=== PATIENT | female | born 1955 | race Caucasian/White ===

== ENCOUNTER → 2017-05-28 | Outpatient (CLI) | payer OTHER ==
[~2017-05-28] MED LIST: CRESTOR5 MG PO; HYDROCHLOROTHIA25 M1 PO; KEPPRA250 MG PO; KLOR-CON 1010 MEQ PO; NEURONTIN600 MG PO; PERCOCET 7.5-31 EACH PO
--- NOTE | ~2017-05-28 | S ---
[facility] [address] [place] [address] SURGICAL PATH RPT PROCEDURE Name: ABRAHAM NASCIMENTO Room #: REG DAYO OdomR.#: [id number] Admission: 05/28/17 Date of : 57 Discharge: Report #: [id number] Path Case #: [id number] PATHOLOGY REPORT DRAFT COLLECTION DATE: 05/28/2017 RECEIVED DATE: 05/28/2017 SPECIMEN(S) RECEIVED: A.Left breast
--- NOTE | ~2017-05-28 | S ---
[facility] [place] [address] [place] [address] SURGICAL PATH RPT PROCEDURE Name: ABRAHAM NASCIMENTO Room #: REG DAYO M.Augustina.#: [id number] Admission: 05/28/17 Date of : 57 Discharge: Report #: [id number] Path Case #: [id number] PATHOLOGY REPORT COLLECTION DATE: 05/28/2017 RECEIVED DATE: 05/28/2017 SUBMITTING PHYS: Dr. Amos Valentin OTHER PHYS: Dr. Raul Khan SPECIMEN(S) RECEIVED: A.Left upper outer breast * * * * * * * * * * * * FINAL DIAGNOSIS: "Left upper outer breast", needle biopsy: - Benign breast with fibrocystic changes including stromal fibrosis, cyst formation, adenosis and columnar change with coarse microcalcifications present; no cytologic atypia or malignancy seen. (CLW:rebekah; 05/29/2017) COMMENT: Manager [facility] slides are co-reviewed with Dr. Latoya Vidal. Clinical and radiographic correlation is recommended. (CLW:rebekah; 05/29/2017) PATHOLOGIST: Tawnya Stewart M.D. REPORT ELECTRONICALLY SIGNED BY: Tawnya Stewart M.D. DATE/TIME: 05/31/2017 21:43 * * * * * * * * * * * * GROSS PATHOLOGY: Received in formalin labeled "Abraham Nascimento, left breast," are multiple needle cores of yellow-luke fibrofatty tissue measuring 3.1 x 3.4 x 0.4 cm in aggregate dimensions. Also received is a plastic cassette containing multiple cores of yellow-luke fibrofatty tissue measuring 2.3 x 1.2 x 0.4 cm in aggregate dimensions. The tissue in the cassette is transferred to cassette A3, and the remaining tissue is submitted in its entirety in cassette A1 and A2. The cold ischemic time is 10 minutes. The total formalin fixation time is 11 hours and 10 minutes. (TSD; 05/28/2017) CLINICAL HISTORY: [facility] [address] [place] [address] SURGICAL PATH RPT PROCEDURE Name: PATI NASCIMENTORED Room #: REG [facility].#: [id number] Admission: 05/28/17 Date of : 57 Discharge: Report #: [id number] Path Case #: [id number] INITIAL CPT CODE(S): A; 46731 Professional services performed by [facility] at [address] , [place] [address] Technical services performed by [facility] at [address] [place] [address], [facility] [address], [place] [address]. [facility] [place] [address] PHONE: [phone] DIRECTOR: Joe Toney M.D. * * * END OF REPORT * * *
== END | disposition home or self-care (01) ==
LOC: RAD 11:42
DX: N60.12 Diffuse cystic mastopathy of left breast (principal); M17.0 Bilateral primary osteoarthritis of knee; Z88.2 Allergy status to sulfonamides

== ENCOUNTER 2017-11-21 01:32 | Emergency (ER) | payer OTHER ==
[~2017-11-21] VITALS: Ht 167.6 cm; Wt 81.7 kg
[2017-11-21] MEDS ORDERED: KEPPRA250 MG PO (01:37)
[2017-11-21] MEDS ORDERED: NEURONTIN600 MG PO (01:38)
[2017-11-21] MEDS ORDERED: CRESTOR5 MG PO (01:38)
[2017-11-21] MEDS ORDERED: KLOR-CON 1010 MEQ PO (01:38)
[2017-11-21] MEDS ORDERED: HYDROCHLOROTHIA25 M1 PO (01:39)
[2017-11-21] MEDS ORDERED: PERCOCET 7.5-31 EACH PO (01:40)
[2017-11-21 05:42] VITALS: BP 141/66
== END 2017-11-21 05:43 | disposition home or self-care (01) ==
LOC: ER 01:32
DX: S41.112A Laceration without foreign body of left upper arm, initial encounter (principal); S60.812A Abrasion of left wrist, initial encounter; S80.811A Abrasion, right lower leg, initial encounter; F17.210 Nicotine dependence, cigarettes, uncomplicated; I63.9 Cerebral infarction, unspecified; Z88.2 Allergy status to sulfonamides; Z90.710 Acquired absence of both cervix and uterus; G89.29 Other chronic pain; M54.9 Dorsalgia, unspecified; M25.519 Pain in unspecified shoulder; W18.39XA Other fall on same level, initial encounter; Y92.89 Other specified places as the place of occurrence of the external cause; Y93.89 Activity, other specified; Y99.8 Other external cause status

== ENCOUNTER 2018-03-18 20:26 | Inpatient (IN) | payer OTHER ==
[~2018-03-18] VITALS: Ht 167.6 cm; Wt 84.8 kg
--- NOTE | ~2018-03-18 | EKG ---
[address] [address] ELECTROCARDIOGRAM REPORT Name: ABRAHAM NASCIMENTO Room #: 456-P ADM IN M.R.#: [id number] Admission: 03/18/18 Attend Phys: Jose Angel MD Discharge: Date of : 57 Report #: [id number] THIS REPORT FOR: //name// [facility] ED Test Date: 2018-03-18 Test Time: 21:20:06 Pat Name: ABRAHAM NASCIMENTO Department: Room: [facility] Gender: F Faith Doctor: MARA : 1955 Requested By: Brynn Price Order Number: [id number] MD: Javier Pires Measurements Intervals [place] Rate: 64 P: 62 HI: 147 QRS: 63 QRSD: 137 T: 56 QT: 423 QTc: 437 Interpretive Statements Sinus rhythm Right ventricular conduction delay No previous ECG available for comparison Electronically Signed On 03-19-2018 8:05:12 [employer]ACHUTE [employer] INST[employer] by Javier Pires [email or web address] <ELECTRONICALLY SIGNED> By: Javier Pires MD, [facility] 03/19/18 0805 19 19 Javier Pires MD, FAC /EPI
--- NOTE | ~2018-03-18 | PATH ---
[facility] [address] [place] [address] PATHOLOGY RPT PROCEDURE Name: ABRAHAM NASCIMENTO Room #: 456-P ADM IN M.R.#: [id number] Admission: 03/18/18 Date of : 57 Discharge: Report #: [id number] Path Case #: [id number] [facility] Accession Number: [id number] . 01 Material submitted: . RANDOM BX OF SIGMOID R/O INFECTIOUS/ISCHEMIC COLITIS . 01 Clinician provided ICD-10: R10.9 R93.5 . 01 Clinical history: . Pre-OP DX: Left abdominal pain, abd CT scan Post-OP DX: Jose C's Rule out infectious/ischemic colitis . 02 Diagnosis: Large intestinal mucosa, sigmoid rule out infectious/ischemic colitis, endoscopic biopsy: - Reactive hyperplastic changes. - Negative for active colitis. - Negative for ischemic changes. - Negative for microscopic colitis. - Negative for dysplasia or malignancy. . (IUV:at;03/22/2018) QTA/03/22/2018 . 02 Comment: Sections of colon biopsy tissues show crypts at regular intervals and no increase in cellularity of lamina propria. There are no granulomas. The collagen layer underneath the epithelium is not thickened. There is no distortion in crypt architecture as well. There is no evidence of dysplasia. (IUV:at;03/22/2018) . 02 Electronically signed: . Latoya Vidal MD, Pathologist NPI- [id number] . 01 Gross description: . Received in formalin labeled "Abraham Nascimento, random BX of sigmoid," are 5 segments of lucas soft tissue measuring 1.2 x 0.6 x 0.2 cm in aggregate dimensions and ranging from 0.3 to 0.6 cm in maximum dimension. The specimen is submitted entirely in cassette A1. (TSD; 03/19/2018) TOB/[place] [address] PATHOLOGY RPT PROCEDURE Name: ABRAHAM NASCIMENTO Room #: 456-P [facility] IN M.R.#: [id number] Admission: 03/18/18 Date of : 57 Discharge: Report #: [id number] Path Case #: [id number] . 02 Pathologist provided ICD-10: R10.9, R93.5 . 02 CPT . 593178 Specimen Comment: A courtesy copy of this report has been sent to Specimen Comment: [phone], . Specimen Comment: Report sent to / DR GUTIERREZ Performed at: [address] [facility] [address], [place], [place] [id number] MD Chandler Iqbal MD Phone: [phone] Performed at: [address] [facility] [id number] MD Latoya Vidal MD Phone: [phone]
[2018-03-18 20:28] VITALS: BP 166/87
[2018-03-18] MEDS ORDERED: ZANAFLEX2 MG PO (20:53)
[2018-03-18] MEDS ORDERED: XANAX 0.25 MG0.25 MG PO (20:53)
[2018-03-18 21:41] LABS: ABSOLUTE NEUTROPHILS 9.9 thou/uL (1.4-8.2); BASOPHILS 0.3 % (0.0-2.0); EOSINOPHILS 0.2 % (0.0-3.0); HEMATOCRIT 43.9 % (37.0-47.0); HEMOGLOBIN 15.3 gm/dL (12.0-15.0); LYMPHOCYTES 8.1 % (24.0-44.0); MCH 33.4 pg (26.0-34.0); MCV 95.5 fL (80.0-100.0); PLATELET COUNT 232 thou/uL (150-400); POLYS 83.4 % (36.0-66.0); RBC 4.59 mil/uL (4.20-5.00); RDW 13.7 % (10.5-14.5); WBC 11.9 thou/uL (4.0-11.0)
[2018-03-18 21:50] LABS: ANION GAP 11 mmol/L (7-16); BUN 13 mg/dL (7-18); CALCIUM 10.2 mg/dL (8.5-10.1); CHLORIDE 101 mmol/L (98-107); CO2 29 mmol/L (21-32); GLUCOSE 144 mg/dL (74-106); POTASSIUM 3.2 mmol/L (3.5-5.1); SODIUM 141 mmol/L (136-145)
[2018-03-18 22:00] LABS: ALBUMIN 3.6 g/dL (3.4-5.0); LIPASE 96 U/L (73-393); SGOT 21 U/L (15-37); SGPT 21 U/L (30-65); TOTAL BILIRUBIN 0.6 mg/dL (<0.1-1.0); TOTAL PROTEIN 8.6 g/dL (6.4-8.2); TROPONIN-I <0.06 ng/mL (<0.06)
[2018-03-18 22:34] LABS: URINE BILIRUBIN NEGATIVE (Negative); URINE BLOOD TRACE (Negative); URINE CLARITY CLEAR; URINE COLOR YELLOW; URINE GLUCOSE-RANDOM* NEGATIVE (Negative); URINE KETONES NEGATIVE (Negative); URINE LEUKOCYTES NEGATIVE (Negative); URINE NITRITE NEGATIVE (Negative); URINE PROTEIN (DIPSTICK) NEGATIVE (Negative); URINE SPECIFIC GRAVITY >= 1.030 (1.005-1.035)
[2018-03-19] VITALS (7 sets, daily range): BP systolic 141–176; BP diastolic 63–100
[2018-03-19 06:23] LABS: HEMOGLOBIN 13.7 gm/dL (12.0-15.0); MCH 33.2 pg (26.0-34.0); MCHC 34.3 g/dL (28.0-37.0); MCV 96.6 fL (80.0-100.0); RBC 4.14 mil/uL (4.20-5.00); RDW 13.8 % (10.5-14.5); WBC 11.1 thou/uL (4.0-11.0)
[2018-03-19 06:39] LABS: CREATININE 0.9 mg/dL (0.6-1.0); MAGNESIUM 1.9 mg/dL (1.8-2.4); POTASSIUM 3.2 mmol/L (3.5-5.1)
[2018-03-20 05:32] VITALS: BP 175/83
[2018-03-20 05:43] LABS: HEMATOCRIT 37.4 % (37.0-47.0); MCH 33.6 pg (26.0-34.0); MCHC 34.6 g/dL (28.0-37.0); MCV 96.9 fL (80.0-100.0); RBC 3.86 mil/uL (4.20-5.00); RDW 13.6 % (10.5-14.5)
[2018-03-20 05:57] LABS: CALCIUM 8.6 mg/dL (8.5-10.1); CREATININE 0.9 mg/dL (0.6-1.0); POTASSIUM 3.2 mmol/L (3.5-5.1)
[2018-03-20 14:30] VITALS: BP 90/54
[2018-03-21 03:11] VITALS: BP 161/77
[2018-03-21 04:35] LABS: HEMATOCRIT 34.1 % (37.0-47.0); HEMOGLOBIN 11.8 gm/dL (12.0-15.0); MCH 33.7 pg (26.0-34.0); MCHC 34.7 g/dL (28.0-37.0); RBC 3.52 mil/uL (4.20-5.00); RDW 13.7 % (10.5-14.5); WBC 8.9 thou/uL (4.0-11.0)
[2018-03-21 04:44] LABS: CALCIUM 8.1 mg/dL (8.5-10.1); CREATININE 1.1 mg/dL (0.6-1.0); POTASSIUM 3.8 mmol/L (3.5-5.1)
[2018-03-21 10:02] VITALS: BP 151/69
[2018-03-21 14:32] VITALS: BP 158/78
[2018-03-21 19:50] VITALS: BP 180/94
[2018-03-22 04:44] VITALS: BP 184/97
[2018-03-22 05:58] LABS: HEMATOCRIT 36.5 % (37.0-47.0); HEMOGLOBIN 12.5 gm/dL (12.0-15.0); MCHC 34.2 g/dL (28.0-37.0); MCV 96.6 fL (80.0-100.0); RBC 3.78 mil/uL (4.20-5.00); RDW 13.3 % (10.5-14.5); WBC 9.1 thou/uL (4.0-11.0)
[2018-03-22 06:08] LABS: CALCIUM 8.3 mg/dL (8.5-10.1); CREATININE 0.7 mg/dL (0.6-1.0); POTASSIUM 3.4 mmol/L (3.5-5.1)
[2018-03-22 07:18] VITALS: BP 163/64
[2018-03-22] MEDS ORDERED: PERCOCET 10-321 EACH PO (13:33)
[2018-03-22] MEDS ORDERED: COLACE 100 MG100 MG PO (13:34)
[2018-03-22] MEDS ORDERED: MIRALAX17 GM PO (13:35)
[2018-03-22 13:48] VITALS: BP 163/64
[2018-03-22 15:03] VITALS: BP 163/64
== END 2018-03-22 16:53 | disposition home or self-care (01) | DRG 371 ==
LOC: ER 20:26 → EROBS 23:44 → 4W 23:44 → ENTRNSPT 03-22 16:15 → 4W 03-22 16:53
PROVIDERS: Hospitalist; Nurse Practitioner Family; Physician Assistant
PROC: 0DBN8ZX Excision of Sigmoid Colon, Via Natural or Artificial Opening Endoscopic, Diagnostic (ICD-10-PCS; principal; 2018-03-19)
DX: A04.9 Bacterial intestinal infection, unspecified (principal); E43 Unspecified severe protein-calorie malnutrition; E86.0 Dehydration; M19.90 Unspecified osteoarthritis, unspecified site; R56.9 Unspecified convulsions; E78.5 Hyperlipidemia, unspecified; F41.9 Anxiety disorder, unspecified; F17.210 Nicotine dependence, cigarettes, uncomplicated; N63.0 Unspecified lump in unspecified breast; K59.03 Drug induced constipation; T40.605A Adverse effect of unspecified narcotics, initial encounter; Y92.89 Other specified places as the place of occurrence of the external cause; Z86.010 Personal history of colon polyps; Z86.73 Personal history of transient ischemic attack (TIA), and cerebral infarction without residual deficits; Z90.710 Acquired absence of both cervix and uterus; Z79.899 Other long term (current) drug therapy; Z28.21 Immunization not carried out because of patient refusal; Z80.0 Family history of malignant neoplasm of digestive organs
CPT/HCPCS: 10040; 62110; 62900; 70005

== ENCOUNTER 2019-06-16 13:28 | Emergency (ER) | payer OTHER ==
[~2019-06-16] VITALS: Ht 170.2 cm; Wt 65.8 kg
[~2019-06-16 13:28] MED LIST changes: +COLACE 100 MG100 MG PO; +MIRALAX17 GM PO; +PERCOCET 10-321 EACH PO; +XANAX 0.25 MG0.25 MG PO; +ZANAFLEX2 MG PO
[2019-06-16 15:32] LABS: ABSOLUTE NEUTROPHILS 8.4 thou/uL (1.4-8.2); BASOPHILS 0.2 % (0.0-2.0); EOSINOPHILS 0.1 % (0.0-3.0); HEMATOCRIT 49.4 % (37.0-47.0); HEMOGLOBIN 16.9 gm/dL (12.0-15.0); LYMPHOCYTES 8.3 % (24.0-44.0); MCH 32.7 pg (26.0-34.0); MCHC 34.2 g/dL (28.0-37.0); MCV 95.6 fL (80.0-100.0); MONOCYTES 2.4 % (1.0-8.0); PLATELET COUNT 230 thou/uL (150-400); RBC 5.17 mil/uL (4.20-5.00); RDW 13.6 % (10.5-14.5); WBC 9.4 thou/uL (4.0-11.0)
[2019-06-16 15:50] LABS: CALCIUM 9.4 mg/dL (8.5-10.1); POTASSIUM 3.8 mmol/L (3.5-5.1)
[2019-06-16 15:54] LABS: ALBUMIN 4.2 g/dL (3.4-5.0); TOTAL BILIRUBIN 0.5 mg/dL (<0.1-1.0); TOTAL PROTEIN 8.7 g/dL (6.4-8.2)
[2019-06-16] MEDS ORDERED: IMODIUM A-D2 MG PO (17:38)
[2019-06-16] MEDS ORDERED: PHENERGAN 25 MG25 MG PO (17:38)
[2019-06-16] MEDS ORDERED: ZOFRAN ODT4 MG PO (17:38)
[2019-06-16 17:55] VITALS: BP 176/86
== END 2019-06-17 00:20 | disposition home or self-care (01) ==
LOC: ER 13:28
PROVIDERS: Emergency Medicine
DX: K52.9 Noninfective gastroenteritis and colitis, unspecified (principal); R11.2 Nausea with vomiting, unspecified; F17.210 Nicotine dependence, cigarettes, uncomplicated; Z86.73 Personal history of transient ischemic attack (TIA), and cerebral infarction without residual deficits; Z90.710 Acquired absence of both cervix and uterus; Z88.2 Allergy status to sulfonamides

== ENCOUNTER → 2019-10-18 | Outpatient (CLI) | payer OTHER ==
[~2019-10-18] MED LIST changes: +IMODIUM A-D2 MG PO; +PHENERGAN 25 MG25 MG PO; +ZOFRAN ODT4 MG PO
== END ==
LOC: RAD 07:36
PROVIDERS: ATTEND Internal Medicine
DX: K44.9 Diaphragmatic hernia without obstruction or gangrene (principal); Z98.1 Arthrodesis status; Z80.0 Family history of malignant neoplasm of digestive organs

== ENCOUNTER → 2020-09-26 | Outpatient (CLI) | payer OTHER | LOC: BC 13:33 | PROVIDERS: ATTEND Internal Medicine | DX: N63.42 Unspecified lump in left breast, subareolar (principal); N63.0 Unspecified lump in unspecified breast ==

== ENCOUNTER 2021-02-13 17:32 | Emergency (ER) | payer OTHER ==
[~2021-02-13] VITALS: Ht 170.2 cm; Wt 81.7 kg
[2021-02-13 20:17] LABS: URINE BILIRUBIN 1+ (Negative); URINE BLOOD 2+ (Negative); URINE CLARITY CLEAR; URINE COLOR YELLOW; URINE GLUCOSE-RANDOM* NEGATIVE (Negative); URINE KETONES TRACE (Negative); URINE LEUKOCYTES-REFLEX NEGATIVE (Negative); URINE NITRITE-REFLEX NEGATIVE (Negative); URINE PROTEIN (DIPSTICK) TRACE (Negative)
[2021-02-13 20:51] LABS: ABSOLUTE NEUTROPHILS 5.3 thou/uL (1.4-8.2); BASOPHILS 0.5 % (0.0-2.0); EOSINOPHILS 0.2 % (0.0-3.0); HEMATOCRIT 44.4 % (37.0-47.0); HEMOGLOBIN 15.2 gm/dL (12.0-15.0); LYMPHOCYTES 24.1 % (24.0-44.0); MCH 33.9 pg (26.0-34.0); MCHC 34.3 g/dL (28.0-37.0); MONOCYTES 7.4 % (1.0-8.0); PLATELET COUNT 201 thou/uL (150-400); POLYS 67.8 % (36.0-66.0); RBC 4.49 mil/uL (4.20-5.00); RDW 14.6 % (10.5-14.5); WBC 7.8 thou/uL (4.0-11.0)
[2021-02-13 20:54] LABS: ICTOTEST (BILI CONFIRMATORY) Negative (Negative)
[2021-02-13 20:58] LABS: CALCIUM 8.9 mg/dL (8.5-10.1); CREATININE 1.1 mg/dL (0.6-1.0); POTASSIUM 3.8 mmol/L (3.5-5.1)
[2021-02-13 21:03] LABS: BACTERIA-REFLEX 1-9 Few /HPF (None Seen); CASTS None Seen /LPF (None Seen); CRYSTALS None Seen /LPF (None Seen); SQUAMOUS 4-10 Moderate /LPF (0-3); URINE RBC 3-10 Few /HPF (NONE SEEN); URINE WBC-REFLEX 0-5 Rare /HPF (0-5)
[2021-02-13 21:05] LABS: ALBUMIN 3.5 g/dL (3.4-5.0); TOTAL BILIRUBIN 0.8 mg/dL (0.2-1.0); TOTAL PROTEIN 7.1 g/dL (6.4-8.2)
[2021-02-13] MEDS ORDERED: BENTYL 10 MG CA10 M1 PO (22:26)
[2021-02-13] MEDS ORDERED: ZOFRAN ODT4 MG PO (22:26)
[2021-02-13 23:04] VITALS: BP 135/81
== END 2021-02-13 23:06 | disposition home or self-care (01) ==
LOC: ER 17:32
PROVIDERS: Nurse Practitioner Family
DX: K52.9 Noninfective gastroenteritis and colitis, unspecified (principal); K85.90 Acute pancreatitis without necrosis or infection, unspecified; F17.210 Nicotine dependence, cigarettes, uncomplicated; Z98.890 Other specified postprocedural states; Z90.710 Acquired absence of both cervix and uterus; Z79.891 Long term (current) use of opiate analgesic; Z79.899 Other long term (current) drug therapy; Z79.1 Long term (current) use of non-steroidal anti-inflammatories (NSAID); Z88.2 Allergy status to sulfonamides

== ENCOUNTER 2021-02-14 12:42 | Inpatient (IN) | payer OTHER ==
[~2021-02-14] VITALS: Ht 170.2 cm; Wt 92.0 kg
[~2021-02-14 12:42] MED LIST changes: +BENTYL 10 MG CA10 M1 PO
[2021-02-14 12:45] VITALS: BP 83/53
[2021-02-14 13:30] LABS: ABSOLUTE NEUTROPHILS 9.1 thou/uL (1.4-8.2); BASOPHILS 0.4 % (0.0-2.0); EOSINOPHILS 0.1 % (0.0-3.0); HEMATOCRIT 47.2 % (37.0-47.0); HEMOGLOBIN 16.1 gm/dL (12.0-15.0); MCH 33.7 pg (26.0-34.0); MCHC 34.1 g/dL (28.0-37.0); MCV 98.6 fL (80.0-100.0); MONOCYTES 7.3 % (1.0-8.0); POLYS 79.2 % (36.0-66.0); RBC 4.79 mil/uL (4.20-5.00); RDW 14.8 % (10.5-14.5); WBC 11.4 thou/uL (4.0-11.0)
[2021-02-14 13:39] LABS: CALCIUM 8.9 mg/dL (8.5-10.1); CREATININE 1.3 mg/dL (0.6-1.0)
[2021-02-14 13:43] LABS: POTASSIUM 3.5 mmol/L (3.5-5.1)
[2021-02-14 13:50] LABS: ALBUMIN 3.8 g/dL (3.4-5.0); TOTAL PROTEIN 7.6 g/dL (6.4-8.2)
[2021-02-14 14:10] LABS: PLATELET COUNT 218 thou/uL (150-400)
--- NOTE | 2021-02-14 15:36 | EKG ---
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: eileen : 1955 Requested By: Chin Boss Order Number: [id number] MD: Amos Grimm Measurements Intervals [place] Rate: 60 P: 56 [place]: 139 QRS: 63 QRSD: 139 T: 54 QT: 472 QTc: 472 Interpretive Statements Sinus rhythm Atrial premature complexes in couplets Right bundle branch block Compared to ECG 03/18/2018 21:20:06 Atrial premature complex(es) now present Right bundle-branch block now present Electronically Signed On 02-14-2021 15:36:32 CDT by Amos Grimm [email or web address] <ELECTRONICALLY SIGNED> By: Amos Grimm MD, [facility] 02/14/21 1536 29 Amos Grimm MD, FACC /EPI
[2021-02-14 16:30] LABS: URINE BLOOD 2+ (Negative); URINE CLARITY CLEAR; URINE COLOR YELLOW; URINE GLUCOSE-RANDOM* NEGATIVE (Negative); URINE KETONES 1+ (Negative); URINE LEUKOCYTES-REFLEX NEGATIVE (Negative); URINE NITRITE-REFLEX NEGATIVE (Negative); URINE PROTEIN (DIPSTICK) NEGATIVE (Negative)
[2021-02-14 16:33] LABS: ICTOTEST (BILI CONFIRMATORY) Negative (Negative); URINE BILIRUBIN NEGATIVE (Negative)
[2021-02-14 16:42] LABS: BACTERIA-REFLEX 1-9 Few /HPF (None Seen); SQUAMOUS 4-10 Moderate /LPF (0-3); URINE RBC 3-10 Few /HPF (NONE SEEN); URINE WBC-REFLEX 0-5 Rare /HPF (0-5)
[2021-02-14 22:29] VITALS: BP 167/87
[2021-02-14 23:00] VITALS: BP 155/86
--- NOTE | 2021-02-15 04:24 | NUR ---
Pt is an ER admit who presented with abdominal pain, paracentesis and NSTEMI. N/V present also. Admission assessment and documentation completed. Pain verbalized. Pain medication administered upon request. Patient continues to verbalize pain. Nausea stable. No acute even through the night. Continue to monitor. No further needs at this time
[2021-02-15 05:50] VITALS: BP 151/79
[2021-02-15 05:54] LABS: ABSOLUTE NEUTROPHILS 5.2 thou/uL (1.4-8.2); BASOPHILS 0.2 % (0.0-2.0); EOSINOPHILS 0.2 % (0.0-3.0); HEMATOCRIT 41.5 % (37.0-47.0); HEMOGLOBIN 14.4 gm/dL (12.0-15.0); LYMPHOCYTES 17.5 % (24.0-44.0); MCH 34.2 pg (26.0-34.0); MCHC 34.6 g/dL (28.0-37.0); MONOCYTES 7.6 % (1.0-8.0); PLATELET COUNT 173 thou/uL (150-400); POLYS 74.5 % (36.0-66.0); RBC 4.19 mil/uL (4.20-5.00); RDW 14.3 % (10.5-14.5); WBC 6.9 thou/uL (4.0-11.0)
[2021-02-15 06:17] LABS: CALCIUM 8.2 mg/dL (8.5-10.1); CREATININE 0.9 mg/dL (0.6-1.0); MAGNESIUM 1.8 mg/dL (1.8-2.4)
[2021-02-15 06:22] LABS: POTASSIUM 2.9 mmol/L (3.5-5.1)
[2021-02-15 06:23] LABS: CHOLESTEROL 163 mg/dL (<200); HDL CHOLESTEROL 34 mg/dL (>40); LDL CHOLESTEROL 99 mg/dL (<100); TC:HDL 4.8 Ratio (Not establshd); TRIGLYCERIDE 151 mg/dL (<150); VLDL 30 mg/dL (<40)
[2021-02-15 06:25] LABS: SERUM ASSESSMENT Clear
[2021-02-15 08:07] VITALS: BP 146/67
[2021-02-15 11:33] VITALS: BP 189/89
[2021-02-15 14:45] LABS: AMP/METHAMP Negative (Negative); BARBITURATES Negative (Negative); BENZODIAZEPINES POSITIVE (Negative); COCAINE Negative (Negative); METHADONE Negative (Negative); OPIATES POSITIVE (Negative); PCP Negative (Negative)
--- NOTE | 2021-02-15 16:00 | NUR ---
met with patient who admits with nausea/vomiting. Patient resides with spouse in the home of a blind man. they assist with his care as needed. Home with multiple steps in home. 17 steps to enter. Prev CVA in 2010, arthritis, back pain. Patient rec disability. Patient uses cane with ambulation. She discussed frustration with spouse and roommate who consume ETOH most of day Patient does not use ETOH. She takes on most resposibility of home. She cooks, cleans, drives. UP ad sarah in room. Discussed drug screen. patient reports she takes percocet and used THC. She is not consistant with use of THC does not feel she needs tx. PCP Dr Benjamin Boyle.
[2021-02-15 16:27] VITALS: BP 144/65
--- NOTE | 2021-02-15 19:33 | NUR ---
ASSESSMENT CHARTED - MEDS PER JUL - GIVEN ZZOFRAN X 2 FOR CO'S OF NASUEA. GIVEN FENANYL THIS AND THEN OXYCODOCE FOR CO'S OF PAIN - PT NOTED TO BE SLEEPING AFTER EACH DOSE OF MEDICATION GIVEN. ACCUCHECKS CHARTED - PT GIVEN K+ AND MAG BOLUSES O,RDERED - LAB FOR THE AM. ULTRASOUND OF ABDOMEN COMPLETED THIS AFTERNOON. UP TO THE BATHROOM PRN. SEEN BY SWS THIS AFTERNOON. NO CO'S AT THE PRESENT TIME.
[2021-02-15 19:56] VITALS: BP 130/47
[2021-02-16 03:47] LABS: MAGNESIUM 2.5 mg/dL (1.8-2.4); POTASSIUM 3.2 mmol/L (3.5-5.1)
[2021-02-16 04:39] VITALS: BP 114/56
--- NOTE | 2021-02-16 08:58 | NUR ---
PT RESTING QUIETLY IN ROOM, VSS, IV FLUIDS INFUSING, TOLERATING CLR LIQUID DIET, PRN PAIN MEDS GIVEN NEEDED, UP ADLIB IN ROOM, STATES SHE FEELS MUCH BETTER HOPES TO GO HOME SOON. REPORT GIVEN TO NEXT SHIFT TO CON'T PPOC.
[2021-02-16 09:29] VITALS: BP 99/63
[2021-02-16 12:00] VITALS: BP 124/70
--- NOTE | 2021-02-16 13:26 | NUR ---
Assumed care of pt at 0700. Pt a&ox4. C/o diarrhea this am. Provider aware. IVF infusing. Diet advanced for lunch. Pt tolerates well. Possible d/c to home later this afternoon. Call light withinr reach. Will continue to monitor.
[2021-02-16 20:30] VITALS: BP 153/71
[2021-02-17 04:45] VITALS: BP 146/101
[2021-02-17 05:08] LABS: CALCIUM 8.1 mg/dL (8.5-10.1); POTASSIUM 3.3 mmol/L (3.5-5.1)
--- NOTE | 2021-02-17 08:29 | NUR ---
PT AMBULATING TO BATHROOM INDEPENDENTLY AND IS TOLERATING FAIR. DENIES PAIN. RESTING COMFORTABLY. NO NEEDS VOICED. CALL LIGHT WITHIN REACH. FREQUENT OBSERVATION.
[2021-02-17 08:47] VITALS: BP 148/64
[2021-02-17 12:57] VITALS: BP 134/57
--- NOTE | 2021-02-17 15:37 | NUR ---
Assumed care of pt this AM. Pt A&O x4, on RA. Pt upset that diet was changed to full liquids. Pt reporting back pain & wanting to just go back to sleep. SB w/ BBB on monitor. Pt had 2 runs Vtach, 1st 12 beat run, 2nd 30-40 beat run. Pt asymptomatic. Pt given potassium replacement per electrolyte protocol. Dr Roni mcintosh. Will continue to monitor pt.
[2021-02-17 16:36] VITALS: BP 158/58
[2021-02-17 19:55] VITALS: BP 181/96
[2021-02-18 00:25] VITALS: BP 191/123
[2021-02-18 04:45] VITALS: BP 153/76
[2021-02-18 08:30] VITALS: BP 158/67
--- NOTE | 2021-02-18 11:53 | NUR ---
Assumed care of pt at 0700. Pt a&ox4. Pt agitated this morning due to being NPO. EGD scheduled for today. IVF infusing. RA. Call light within reach. Will continue to monitor.
[2021-02-18 12:00] VITALS: BP 157/70
[2021-02-18] MEDS ORDERED: LISINOPRIL20 MG PO (16:08)
[2021-02-18 16:40] VITALS: BP 157/66
[2021-02-18 17:40] VITALS: BP 157/66
--- NOTE | 2021-02-20 16:17 | P ---
[facility] [place] [address] [place] [address] PROCEDURE REPORT Name: ABRAHAM NASCIMENTOOCK Room #: 218-P [facility] IN M.R.#: [id number] Admission: 02/14/21 Attend Phys: Marsha Mensah MD Discharge: 02/18/21 Date of : 57 Report #: [id number] THIS REPORT FOR: cc: Mahesh Boyle MD, Christopher B. MD McElhinney, Christian C. MD ~ cc: Benjamin Boyle MD DATE OF SERVICE: 02/18/2021 PROCEDURE PERFORMED: Upper endoscopy with biopsies. HISTORY OF PRESENT ILLNESS: The patient is a 65-year-old female with a history of midepigastric abdominal pain, nausea and vomiting. She was seen in the emergency room, 02/13, was discharged with Bentyl and Zofran. CT scan of the abdomen and pelvis on 02/13 showed diverticulosis. No evidence of diverticulitis. Otherwise, essentially normal. She did have an elevated lipase of 996 on the . This dropped to 525 the following day and by the was normal at 158. She denies any previous history of pancreatitis. She underwent an ultrasound of the abdomen on the , which was normal. Plan is for upper endoscopy. DESCRIPTION OF PROCEDURE: The risks and benefits of the procedure were explained to the patient, those risks including but not limited to bleeding, perforation and the risk of sedation. She understood these risks and gave informed consent. Sedation was given using propofol per anesthesia. Next, using a standard Olympus upper endoscope, the scope was placed in the patient's mouth and advanced under direct vision through the esophagus, stomach and into the second portion of the duodenum. The esophagus was normal throughout. The GE junction was normal. Overall, the gastric mucosa was normal. Biopsies were obtained to rule out H. pylori. The pylorus was normal and patent. The duodenal bulb, first and second portion were all normal. The scope was then withdrawn and the procedure terminated. The patient tolerated the procedure well. IMPRESSION: Normal upper endoscopy. RECOMMENDATIONS: 1. Await biopsy results. 2. Etiology of the recent midepigastric abdominal pain may be secondary to pancreatitis. CT scan of the abdomen and pelvis on the showed a normal pancreas, may need to consider endoscopic ultrasound if pain persist. Upper endoscopy today was normal. We will advance diet. PLAN ON DISCHARGE: Discharge to home soon. [address] [address] PROCEDURE REPORT Name: ABRAHAM NASCIMENTO SRINATH Room #: 218-P [facility] IN M.R.#: [id number] Admission: 02/14/21 Attend Phys: Marsha Mensah MD Discharge: 02/18/21 Date of : 57 Report #: [id number] Thank you for allowing me to participate in her care. <ELECTRONICALLY SIGNED> By: Manuel Subramanian MD 02/20/21 1617 1459 0104 Manuel Subramanian MD /renard
--- NOTE | 2021-02-20 18:06 | PATH ---
[facility] [address] [place] [address] PATHOLOGY RPT PROCEDURE Name: ABRAHAM NASCIMENTO [facility] Room #: 218-P DIS IN M.R.#: [id number] Admission: 02/14/21 Date of : 57 Discharge: 02/18/21 Report #: [id number] Path Case #: [id number] [facility] Accession Number: [id number] . 01 Material submitted: . gastrointestinal site - GASTRIC BIOPSY R/O H. PYLORI . 01 Clinical history: . EGD N/V, ABD PAIN PANCREATITIS, NSTEMI, ELEVATED TROP . 02 Diagnosis: Gastric mucosa, gastric, biopsy: - Mild inactive chronic gastritis. - Immunohistochemical for H. pylori is negative. (SCA:pit; 02/20/2021) QTP 02/20/2021 1329 Local . 02 Electronically signed: . Reji Leyva DO, Pathologist NPI- [id number] . 01 Gross description: . The specimen is received in formalin, labeled "Abraham Nascimento gastric biopsy". Received are three segments of pale lucas tissue ranging in size from 0.3-0.5 cm in maximum dimensions. The specimen is submitted entirely in cassette A1. (CAA; 02/19/2021) QAC/QAC 02/19/2021 0929 Local . 02 Pathologist provided ICD-10: K29.50 . 02 CPT . 323127, F77646 Specimen Comment: A courtesy copy of this report has been sent to [phone], [phone] Specimen Comment: [phone], Specimen Comment: Report sent to , DR MANN / DR FERREIRA Performed at: 01 [facility] [address] [place] [id number] MD Ruddy Blount MD Phone: [phone] Performed at: [address] [id number] [place] [address] PATHOLOGY RPT PROCEDURE Name: ABRAHAM NASCIMENTO [facility] Room #: 218-P DIS IN M.R.#: [id number] Admission: 02/14/21 Date of : 57 Discharge: 02/18/21 Report #: [id number] Path Case #: [id number] MD Joe Toney MD Phone: [phone]
== END 2021-02-18 18:21 | disposition home or self-care (01) | DRG 280 ==
LOC: ER 12:42 → EROBS 17:27 → 2N 17:27
PROVIDERS: Internal Medicine; Nurse Practitioner; Physician Assistant; ADMIT Hospitalist; ATTEND Hospitalist
PROC: 0DB68ZX Excision of Stomach, Via Natural or Artificial Opening Endoscopic, Diagnostic (ICD-10-PCS; principal; 2021-02-18)
DX: I21.4 Non-ST elevation (NSTEMI) myocardial infarction (principal); K85.90 Acute pancreatitis without necrosis or infection, unspecified; N17.9 Acute kidney failure, unspecified; K52.9 Noninfective gastroenteritis and colitis, unspecified; E87.6 Hypokalemia; F41.9 Anxiety disorder, unspecified; G89.29 Other chronic pain; M19.90 Unspecified osteoarthritis, unspecified site; M54.50 Low back pain, unspecified; G40.909 Epilepsy, unspecified, not intractable, without status epilepticus; F12.10 Cannabis abuse, uncomplicated; F19.10 Other psychoactive substance abuse, uncomplicated; Z20.822 Contact with and (suspected) exposure to COVID-19; Z90.710 Acquired absence of both cervix and uterus; Z86.73 Personal history of transient ischemic attack (TIA), and cerebral infarction without residual deficits; Z88.2 Allergy status to sulfonamides; Z82.49 Family history of ischemic heart disease and other diseases of the circulatory system; Z87.891 Personal history of nicotine dependence; Z86.010 Personal history of colon polyps; Z80.0 Family history of malignant neoplasm of digestive organs; Z71.6 Tobacco abuse counseling; Z79.899 Other long term (current) drug therapy
CPT/HCPCS: 10081; 62110; 62900; 70005

== ENCOUNTER → 2021-03-25 | Outpatient (CLI) | payer OTHER ==
[~2021-03-25] MED LIST changes: +LISINOPRIL20 MG PO
== END ==
LOC: SJCVCIMAG 08:37
PROVIDERS: ATTEND Internal Medicine
DX: I45.10 Unspecified right bundle-branch block (principal); R00.1 Bradycardia, unspecified; I10 Essential (primary) hypertension; E78.5 Hyperlipidemia, unspecified; R51.9 Headache, unspecified; R06.00 Dyspnea, unspecified; Z86.73 Personal history of transient ischemic attack (TIA), and cerebral infarction without residual deficits; Z79.899 Other long term (current) drug therapy; Z88.2 Allergy status to sulfonamides

== ENCOUNTER → 2021-04-17 | Outpatient (CLI) | payer OTHER | LOC: ULTRA 13:56 | PROVIDERS: ATTEND Internal Medicine | DX: N63.20 Unspecified lump in the left breast, unspecified quadrant (principal) ==